=== PATIENT | male | born 1965 | race Caucasian/White ===

== ENCOUNTER 2019-08-16 16:11 | Emergency (ER) | payer OTHER ==
[2019-08-16 16:24] VITALS: BP 168/100; PULSE 110; RESP 20; TEMP 98.5
[2019-08-16] MEDS ORDERED: DIPH,PERTUS(ACELL)TETVAC-LF 0.5 ML VIAL IM ONE (16:30)
[2019-08-16] MEDS ORDERED: LIDOCAINE 1% INJ 10MG/ML (20 ML MDV) SQ ONE (16:31)
--- NOTE | 2019-08-16 16:56 | XR ---
EXAMINATION TYPE: XR finger LT DATE OF EXAM: 08/16/2019 COMPARISON: NONE HISTORY: Laceration injury with pain.. TECHNIQUE: 3 views left middle finger are acquired. FINDINGS: No acute fracture or dislocation is seen. Mild joint space narrowing PIP and DIP joints. Mi ld diffuse soft tissue swelling without suspicious radiodense foreign body. IMPRESSION: As above.
--- NOTE | 2019-08-16 17:34 | ED ---
General Adult HPI - General Chief complaint: Wound/Laceration Stated complaint: Finger laceration Time Seen by Provider: 08/16/19 16:26 Source: patient, RN notes reviewed Mode of arrival: ambulatory Limitations: no limitations - History of Present Illness Initial comments: 54-year-old male presents for laceration to the left third digit. He states that he was using a knife when this occurred. Tetanus not up-to-date. Denies any difficulty bending the finger. Denies any other injuries. Tetanus is not up-to-date in the past 5 years.Patient has no other complaints at this time including shortness of breath, chest pain, abdominal pain, nausea or vomiting, headache, or visual changes. - Related Data Allergies Allergy/AdvReac Type Severity Reaction Status Date / Time No Known Allergies Allergy Verified 08/16/19 16:24 Review of Systems ROS Statement: Those systems with pertinent positive or pertinent negative responses have been documented in the HPI. ROS Other: All systems not noted in ROS Statement are negative. Past Medical History Past Medical History: Hypertension History of Any Multi-Drug Resistant Organisms: None Reported Past Surgical History: No Surgical Hx Reported Past Psychological History: No Psychological Hx Reported Smoking Status: Current every day smoker Past Alcohol Use History: Occasional Past Drug Use History: None Reported General Exam Limitations: no limitations General appearance: alert, in no apparent distress Head exam: Present: atraumatic, normocephalic, normal inspection Eye exam: Present: normal appearance, PERRL, EOMI. Absent: scleral icterus, conjunctival injection, periorbital swelling ENT exam: Present: normal exam, mucous membranes moist Neck exam: Present: normal inspection. Absent: tenderness, meningismus, lymphadenopathy Respiratory exam: Present: normal lung sounds bilaterally. Absent: respiratory distress, wheezes, rales, rhonchi, stridor Cardiovascular Exam: Present: regular rate, normal rhythm, normal heart sounds. Absent: systolic murmur, diastolic murmur, rubs, gallop, clicks Extremities exam: Present: other (She has a 3 cm laceration of the palmar aspect left third finger distal middle phalanx. Full range of motion of this finger. I do not see any evidence of deep structure injury. Capillary refill less than 2 seconds in this finger. Bleeding is controlled upon arrival.) Course Vital Signs 08/16/19 16:22 Temperature 98.5 F Pulse Rate 110 H Respiratory 20 Rate Blood Pressure 168/100 O2 Sat by Pulse 97 Oximetry Procedures - Laceration Laceration #1 Consent Obtained: verbal consent Indication: laceration Site: hand Size (cm): 3 Description: linear Depth: simple, single layer Anesthetic Used: lidocaine 1% Anesthesia Technique: local infiltration Amount (mls): 4 Pre-repair: wound explored, irrigated extensively (With saline pressure irrigati on) Type of Sutures: nylon Size of Sutures: 5-0 Number of Sutures: 4 Technique: simple, interrupted Patient Tolerated Procedure: well, no complications Medical Decision Making - Medical Decision Making X-ray reviewed. No obvious foreign body. No acute fracture. Wound was cleaned and then sutured. Return parameters given as well as care instructions. Disposition Clinical Impression: Laceration Disposition: HOME SELF-CARE Condition: Good Instructions (If sedation given, give patient instructions): Care For Your Stitches (ED), Laceration (ED) Additional Instructions: Please clean area. Follow-up with primary care in 1-2 days. Return to the emergency department for any worsening symptoms. Return in 7-10 days for suture removal. Is patient prescribed a controlled substance at d/c from ED?: No Referrals: Chong Johnson MD [REFERRING] - 1-2 days Time of Disposition: 17:33
== END 2019-08-16 17:43 | disposition home or self-care (01) ==
LOC: EC 16:11
DX: S61.213A Laceration without foreign body of left middle finger without damage to nail, initial encounter (principal); F17.200 Nicotine dependence, unspecified, uncomplicated; Z23 Encounter for immunization; W26.0XXA Contact with knife, initial encounter; Y93.89 Activity, other specified
CPT/HCPCS: 73140; 90715; 99283; 90471; 12002; J2001